=== PATIENT | female | born 1940 | race Two or more races ===

== ENCOUNTER 2019-03-25 20:14 | Inpatient (IN) | payer OTHER ==
[~2019-03-25] VITALS: Ht 121.9 cm; Wt 53.5 kg
--- NOTE | 2019-03-26 02:30 | NUR ---
CONFERENCE CENTER COORDINATORPONY RIDE ATTENDANT NOTES Received patient A/O x1-2 direct admit from [facility]. Admission routine done. Initial skin assessment done, no skin issues identified. With patent peripheral IV line LFA G#20, SL wrapped with kerlix. Diaper changed PRN, perineal care done. On tele monitor with NSR with inverted T wave noted. Kept on bed clean, dry and comfortable. On fall and aspiration precautions. Call light within easy reach. Will continue to monitor accordingly.
[2019-03-26] MEDS ORDERED: hydrALAZINE HCL IV 20 MG VIAL IV PRN (03:00)
[2019-03-26 03:30] VITALS: BP 160/95
[2019-03-26 04:10] LABS: BASOPHILS # (AUTO) 0.2 /CMM (0.0-0.2); BASOPHILS % (AUTO) 1.4 % (0.0-2.0); EOSINOPHILS % (AUTO) 12.5 % (0.0-6.0); HEMATOCRIT 50 % (33-45); HEMOGLOBIN 16.1 g/dL (11.5-14.8); LYMPHOCYTES # (AUTO) 3.7 /CMM (0.8-4.8); LYMPHOCYTES % (AUTO) 31.7 % (20.0-44.0); MEAN CORPUSCULAR HGB CONC 32 g/dl (31.0-36.0); MEAN CORPUSCULAR VOLUME 84 fL (82-100); MONOCYTES # (AUTO) 0.6 /CMM (0.1-1.30); MONOCYTES % (AUTO) 5.6 % (2.0-12.0); NEUTROPHILS # (AUTO) 5.6 /CMM (1.8-8.9); NEUTROPHILS % (AUTO) 48.8 % (43.0-81.0); PLATELET COUNT (AUTO) 216 /CMM (150-450); RED BLOOD CELL COUNT(AUTO) 5.91 MIL/uL (4.0-5.2); WHITE BLOOD COUNT (AUTO) 11.5 K/uL (4.3-11.0)
[2019-03-26 04:20] LABS: CALCIUM, SERUM 9.6 mg/dL (8.5-10.1); CREATININE 0.9 mg/dL (0.6-1.3); POTASSIUM 4.2 mmol/L (3.5-5.1)
--- NOTE | 2019-03-26 04:30 | NUR ---
BOOT TRIMMER NOTES Patient noted standing on bed, confused, agitated. Tried to calm patient down but started to hit staff. insurance analyst MD notified with order okay to apply wrists restrain PRN. Will continue to monitor accordingly.
[2019-03-26 04:32] LABS: ALBUMIN 3.8 g/dL (3.4-5.0); BILIRUBIN,TOTAL 0.8 mg/dL (0.2-1.0); TOTAL PROTEIN, SERUM 8.5 g/dL (6.4-8.2)
[2019-03-26] MEDS ORDERED: METO50TA16 PO (05:21)
[2019-03-26] MEDS ORDERED: CLON0.1T PO (05:21)
[2019-03-26] MEDS ORDERED: BENA40TA8 PO (05:21)
[2019-03-26] MEDS ORDERED: TRAM50TA2 PO (05:21)
[2019-03-26] MEDS ORDERED: AMLO5TAB9 PO (05:21)
[2019-03-26 05:24] LABS: THYROID STIMULATING HORMONE 1.974 uIU/mL (0.358-3.74)
[2019-03-26] MEDS ORDERED: BLOOD SUGAR DIAGNOSTIC 1 EACH STRIP IN SCH (06:00)
--- NOTE | 2019-03-26 06:30 | NUR ---
PIE CRIMPING MACHINE OPERATOR NOTES Patient on bed on semi-zapata's position. On RA, no respiratory distress or any discomfort noted. Patient wide awake, pulling off SCD on both legs. Still with bilateral soft wrist restraints, patient remained danger to own safety. All nursing needs attended. Kept on bed clean, dry and comfortable. On fall and aspiration precautions. On tele monitor with NSR with inverted T wave noted. Endorsed to the next shift.
[2019-03-26] MEDS: BLOOD SUGAR DIAGNOSTIC 1 EACH STRIP IN SCH ×4 (06:51→21:35)
--- NOTE | 2019-03-26 07:30 | NUR ---
TELE/RN OPENING NOTES RECEIVED PATIENT IN BED SLEEPING COMFORTABLY. EASILY AROUSABLE. NO PAIN OR ACUTE DISTRESS AT THIS TIME. RESPIRATION EVEN AND UNLABORED. SKIN IS DRY WARM TO TOUCH. PATIENT NOTED WITH LFA #20G INTACT AND PATENT. FLUSHING WELL. NO S/S OF INFECTION OR INFILTRATION. ALL NEEDS ANTICIPATED. CALL LIGHT WITHIN REACHED. SAFETY MAINTAINED. BED LOCKED AND IN LOWEST POSITION. WILL CONTINUE TO MONITOR CLOSELY.
[2019-03-26 08:47] VITALS: BP 127/87
[2019-03-26] MEDS ORDERED: ENOXAPARIN SODIUM 40 MG/0.4 ML DISP.SYRIN SQ SCH (09:30)
[2019-03-26] MEDS: ASPIRIN EC 325 MG TABLET.DR PO SCH (09:41)
[2019-03-26] MEDS: ENOXAPARIN SODIUM 30 MG/0.3 ML DISP.SYRIN SQ SCH (09:41)
--- NOTE | 2019-03-26 14:00 | NUR ---
MS/RN NOTES PATIENT WAS SEEN AND EVALUATED BY FACILITY WORKER. FACILITY WORKER DID A POST STROKE DEPRESSION ASSESSMENT AND PER SW PATIENT WOULD BE NEEDING A PSYCH CONSULT WITH DR. CLARKE. ALL ORDERS NOTED AND CARRIED OUT. PATIENT CONTINUES TO REMAIN IN STABLE CONDITION. FAMILY MEMBERS AT BEDSIDE. WILL CONTINUE TO MONITOR CLOSELY.
--- NOTE | 2019-03-26 14:50 | NUR ---
Social service consult requested by Dr. Sultana for Stroke protocol. Per MD notes, pt is a 78 year old female with past medical hx of CAD s/p CABG, DM, HTN, CVA who was seen at [facility] for chest pain and vision changes and right eye pain and changes in ability to speak. She reported to having a stroke in January with some residual right weakness. Pt was found to hve elevated BNP at 718, negative troponin, CTA showed no acute aortic syndrome, atherosclerosis, right renal hilar 1.7cm aneurysm and s/p CABG changes, no pulmonary consolidation, CT head showed no acute intracranial disease. CXR showed mod-severe cardiomegaly and patchy consolidation suspicious for pneumonia/edema. She was found to have IOP of 14 in both eyes. TTE showed severely dilated LV with EF 60-65% Patient treated with ASA and transferred here for insurance reasons. ANIMAL CARE SPECIALIST met with the pt and her family bedside. Pt's daughter Melinda was present. Pt and family are Persian speaking. MARY Echeverria assisted in translating. Pt. resides with her family at [address] [place] [address], [address] in [place]. Pt's emergency contact is her daughter Melinda . ANIMAL CARE SPECIALIST conducted Depression screening with pt. and family members. . Pt. is alert and oriented x 3. Pt appears to be moderately depressed. Pt. states, she is feeling more sad due to being on two point restraints for safety concerns. Pt. kept wandering out of bed when she had no restraints. Pt. has a sad affect. Pt's right eye is slightly drooping. Prior to hospitalization, pt's daughter stated the pt was independent with her ADLs/IADLs. Pt. stated, she wants to go back to being able to do things her daughter is able to do now. Pt's family is very supportive. Pt.denies suicidal ideations but is moderately depressed. DINA Bowers notified regarding pt. needing a psych consult and C-SSRS screening due to pt scoring a 13 on the Post Stroke Depression scale (PHQ-9).
[2019-03-26 16:36] VITALS: BP 149/92
--- NOTE | 2019-03-26 18:33 | NUR ---
TELE/RN CLOSING NOTES PATIENT CONTINUES TO REMAIN IN STABLE CONDITION THROUGHOUT THE SHIFT. PROVIDED COMFORT AND SAFETY. PATIENT NOTED WITH LFA #20G INTACT AND PATENT. FLUSHING WELL. NO S/S OF INFECTION OR INFILTRATION. ALL NEEDS ANTICIPATED. CALL LIGHT WITHIN REACHED. SAFETY MAINTAINED. BED LOCKED AND IN LOWEST POSITION. WILL CONTINUE TO MONITOR CLOSELY. ENDORSED TO PM NURSE FOR DONN.
--- NOTE | 2019-03-26 19:00 | NUR ---
MS RN OPENING NOTES Received patient awake on bed. On bilateral soft wrist restrain. Patient noted confused. No s/sx of discomfort noted at this time. Kept on bed clean, dry and comfortable. Call light within easy reach. On fall and aspiration precautions. Will continue to monitor accordingly.
[2019-03-26 21:20] VITALS: BP 135/86
[2019-03-26] MEDS ORDERED: SIMVASTATIN 20 MG TABLET PO SCH (22:00)
[2019-03-26] MEDS ORDERED: SIMVASTATIN 40 MG TABLET PO SCH (22:00)
[2019-03-26] MEDS: VALACYCLOVIR HCL 500 MG TABLET PO SCH (22:49)
[2019-03-27] MEDS: BLOOD SUGAR DIAGNOSTIC 1 EACH STRIP IN SCH ×2 (06:31→12:30)
--- NOTE | 2019-03-27 06:36 | NUR ---
MS RN CLOSING NOTES Patient asleep on bed, easily awaken. On RA, no SOB/respiratory distress noted at this time. Patient denies any discomfort at this time. With bilateral soft wrist restraints. Patient remained confused, and combative. Reinserted IV line, good blood return noted after first attempt. RAC G#22 SL. Kept on bed clean, dry and comfortable. On fall and aspiration precautions. Call light within easy reach. Endorsed to the next shift.
--- NOTE | 2019-03-27 07:10 | NUR ---
MS RN OPENING NOTES RECEIVED PATIENT IN BED, ALERT AND CONFUSED WITH BILATERAL WRIST RESTRAINTS IN PLACE. PATIENT TRYING TO GET OOB. REORIENTED PATIENT ALONG WITH DISTRACTIONS PROVIDED. BED IN LOWEST POSITION, LOCKED. NO SOB. NO EVIDENCE OF PAIN NOR DISCOMFORT. BED SIDERAILS UP X2. BED ALARM ON. FREQUENT VISUAL CHECK DONE.
[2019-03-27 07:57] LABS: BASOPHILS # (AUTO) 0.1 /CMM (0.0-0.2); BASOPHILS % (AUTO) 0.5 % (0.0-2.0); HEMATOCRIT 50 % (33-45); HEMOGLOBIN 16.5 g/dL (11.5-14.8); LYMPHOCYTES # (AUTO) 2.1 /CMM (0.8-4.8); MEAN CORPUSCULAR HGB CONC 33 g/dl (31.0-36.0); MEAN CORPUSCULAR VOLUME 83 fL (82-100); MONOCYTES # (AUTO) 0.7 /CMM (0.1-1.30); MONOCYTES % (AUTO) 6.7 % (2.0-12.0); NEUTROPHILS # (AUTO) 7.6 /CMM (1.8-8.9); NEUTROPHILS % (AUTO) 70.8 % (43.0-81.0); PLATELET COUNT (AUTO) 209 /CMM (150-450); WHITE BLOOD COUNT (AUTO) 10.8 K/uL (4.3-11.0)
[2019-03-27 08:00] VITALS: BP 122/78
[2019-03-27 08:14] LABS: CALCIUM, SERUM 9.7 mg/dL (8.5-10.1); CREATININE 0.9 mg/dL (0.6-1.3); POTASSIUM 3.7 mmol/L (3.5-5.1)
[2019-03-27] MEDS: PANTOPRAZOLE 40 MG TABLET.DR PO SCH (08:53)
[2019-03-27] MEDS ORDERED: predniSONE 10 MG TABLET PO SCH (09:00)
[2019-03-27] MEDS: VALACYCLOVIR HCL 500 MG TABLET PO SCH (09:08)
[2019-03-27] MEDS: ASPIRIN EC 325 MG TABLET.DR PO SCH (09:08)
[2019-03-27] MEDS: ENOXAPARIN SODIUM 30 MG/0.3 ML DISP.SYRIN SQ SCH (09:11)
[2019-03-27] MEDS ORDERED: DEXTROSE 50%-WATER 50 ML DISP.SYRIN IV PRN (15:00)
--- NOTE | 2019-03-27 16:10 | NUR ---
MS RN NOTES PATIENT OFF UNIT FOR CT
--- NOTE | 2019-03-27 16:24 | NUR ---
MS RN NOTES PATIENT RETURNED TO UNIT FROM CT SCAN.
[2019-03-27] MEDS: CLOPIDOGREL BISULFATE 75 MG TABLET PO SCH (17:08)
[2019-03-27] MEDS: BLOOD SUGAR DIAGNOSTIC 1 EACH STRIP VI SCH ×2 (17:08→22:15)
[2019-03-27] MEDS: OLANZAPINE 5 MG/TAB.RAPDIS PO SCH ×2 (17:11→23:20)
[2019-03-27] MEDS: INSULIN REGULAR, HUMAN 100 UNIT/ML 3 ML VIAL SQ PRN (17:13)
--- NOTE | 2019-03-27 19:25 | NUR ---
MS RN CLOSING NOTES PATIENT RESTING COMFORTABLY IN BED. DAUGHTER AT BEDSIDE. ALERT AND CONFUSED. SITTER AT BEDSIDE. NO SOB. ABLE TO MOVE ALL EXTREMITIES WITHOUT DIFFICULTY. DENIES ANY C/O PAIN NOR DISCOMFORT. NO EVIDENCE OF SWALLOWING DIFFICULTY OBSERVED DURING THE SHIFT. BEE PUREED WITH HTL WELL DURING MEAL INTAKE. BEE CRUSHED MEDICATIONS WELL DURING THE SHIFT. BED IN LOWEST POSITION, LOCKED. NO SOB. NO EVIDENCE OF PAIN NOR DISCOMFORT. BED SIDERAILS UP X2. BED ALARM ON. FREQUENT VISUAL CHECK DONE. IN NO APPARENT DISTRESS.
[2019-03-27 20:00] VITALS: BP 132/81
--- NOTE | 2019-03-27 20:26 | NUR ---
MS RN OPENING NOTES Patient received resting in bed, A/O x1 mostly Lao speaking and confused. Sitter is at bedside. Patient is on RA breathing even and unlabored, no SOB noted. No complaints of pain or discomfort, no facial grimacing noted. No signs of acute distress. IV located on R AC #22 SL. Safety precautions in place with bed in lowest position, breaks on, side rails ups x 2, and call light within reach. Will continue to monitor.
[2019-03-27] MEDS: SIMVASTATIN 20 MG TABLET PO SCH (22:08)
[2019-03-27] MEDS: *INSULIN REGULAR(HUMULIN R)HUM 100 UNIT/ML VIAL SQ PRN (22:17)
[2019-03-28 06:24] LABS: BASOPHILS # (AUTO) 0.1 /CMM (0.0-0.2); BASOPHILS % (AUTO) 0.5 % (0.0-2.0); EOSINOPHILS % (AUTO) 3.7 % (0.0-6.0); HEMATOCRIT 49 % (33-45); LYMPHOCYTES # (AUTO) 2.4 /CMM (0.8-4.8); LYMPHOCYTES % (AUTO) 17.9 % (20.0-44.0); MEAN CORPUSCULAR HGB CONC 33 g/dl (31.0-36.0); MEAN CORPUSCULAR VOLUME 83 fL (82-100); MONOCYTES # (AUTO) 0.8 /CMM (0.1-1.30); MONOCYTES % (AUTO) 5.9 % (2.0-12.0); NEUTROPHILS # (AUTO) 9.5 /CMM (1.8-8.9); PLATELET COUNT (AUTO) 201 /CMM (150-450); RED BLOOD CELL COUNT(AUTO) 5.83 MIL/uL (4.0-5.2); WHITE BLOOD COUNT (AUTO) 13.2 K/uL (4.3-11.0)
[2019-03-28] MEDS: OLANZAPINE 5 MG/TAB.RAPDIS PO SCH ×2 (06:24→12:00)
[2019-03-28] MEDS: BLOOD SUGAR DIAGNOSTIC 1 EACH STRIP VI SCH ×4 (06:34→22:46)
--- NOTE | 2019-03-28 06:37 | NUR ---
MS RN CLOSING NOTES PATIENT CURRENTLY RESTING IN BED A/O X1 CONFUSED, SITTER IS AT BEDSIDE. PATIENT IS ON 2L OF O2 VIA NC BREATHING EVEN AND UNLABORED, NO SOB NOTED. NO SIGNS OF ACUTE DISTRESS, NO FACIAL GRIMACING, NO PAIN OR DISCOMFORT NOTED. IV LOCATED ON R AC #20 SL. ALL NEEDS WERE ATTENDED TO AND PATIENT WAS KEPT CLEAN AND DRY. SAFETY PRECAUTIONS IN PLACE WITH BED IN LOWEST POSITION, CALL LIGHT WITHIN REACH, BREAKS ON, AND SIDE RAILS UP X2. WILL ENDORSE TO ONCOMING SHIFT ABOUT DONN.
[2019-03-28 07:00] LABS: CALCIUM, SERUM 10.1 mg/dL (8.5-10.1); CREATININE 0.7 mg/dL (0.6-1.3); MAGNESIUM 2.2 mg/dL (1.8-2.4); PHOSPHORUS 3.3 mg/dL (2.5-4.9); POTASSIUM 3.9 mmol/L (3.5-5.1)
--- NOTE | 2019-03-28 07:00 | NUR ---
MS/RN Received patient AOx1, confused, sitter at bed side. No appears pain or any discomfort. Skin is warm to touch kept clean/dry, intact IV site, respiratory even and unlabored. Lower bed position with elevated HOB for safety precaution. Call light within reach, will continue to monitor.
[2019-03-28] MEDS: PANTOPRAZOLE 40 MG TABLET.DR PO SCH (07:51)
[2019-03-28 08:00] VITALS: BP 116/69
[2019-03-28] MEDS ORDERED: ASPIRIN EC 325 MG TABLET.DR PO SCH (09:00)
[2019-03-28] MEDS: CLOPIDOGREL BISULFATE 75 MG TABLET PO SCH (09:07)
[2019-03-28] MEDS: ENOXAPARIN SODIUM 30 MG/0.3 ML DISP.SYRIN SQ SCH (09:08)
[2019-03-28] MEDS: ASPIRIN EC 81 MG TABLET.DR PO SCH (09:20)
[2019-03-28] MEDS: *INSULIN REGULAR(HUMULIN R)HUM 100 UNIT/ML VIAL SQ PRN (11:42)
[2019-03-28] MEDS ORDERED: Z GUARD REMEDY 2 OZ OINT TP PRN (12:30)
[2019-03-28] MEDS ORDERED: BARIUM SULFATE 240 ML ORAL.SUSP PO ONE (15:12)
[2019-03-28] MEDS ORDERED: BARIUM SULFATE 148 GM SUSP.RECON PO ONE (15:12)
[2019-03-28 16:00] VITALS: BP 103/57
--- NOTE | 2019-03-28 18:00 | NUR ---
MS/RN Closing note Pt is in bed comfortably, family member at bed side and feeding pt. No appears pain or discomfort, skin is warm to touch, clean/dry. Kept lower bed positioned with elevated HOB. Respiratory even and unlabored. Call light within reach, will continue to monitor.
[2019-03-28] MEDS: INSULIN REGULAR, HUMAN 100 UNIT/ML 3 ML VIAL SQ PRN (18:21)
--- NOTE | 2019-03-28 19:45 | NUR ---
RN OPENING NOTES RECEIVED REPORT FROM [facility] RN MJ & GOYO. FOUND Pt ASLEEP IN BED, SITTER AT BEDSIDE. NO S/S OF ACUTE DISTRESS OR SOB NOTED. RESPIRATIONS EVEN AND UNLABORED WITH EQUAL CHEST RISE AND FALL. Pt IS A/OX1, CONFUSED, & AUSTRALIAN SPEAKING ONLY. IV ACCESS ON RAC #22G, SL. SAFETY MEASURES IN PLACE. BED LOW, LOCKED, HOB ELEVATED, SIDE RAILS UP, SITTER AT BEDSIDE. BED ALARM ON. WILL CONTINUE TO MONITOR Pt's CONDITION AND SAFETY THROUGHOUT THE NIGHT. Addendum: 03/28/19 at 2052 by RUBY HIGH RN RESTRAINTS ARE CURRENTLY OFF OF Pt. Pt IS CALM AND ASLEEP.
[2019-03-28 20:30] VITALS: BP 121/90
--- NOTE | 2019-03-28 22:51 | NUR ---
RN NOTES BG 83. NO INSULIN COVERAGE NEEDED AT THIS TIME.
[2019-03-28] MEDS: SIMVASTATIN 20 MG TABLET PO SCH (22:54)
[2019-03-29 06:22] LABS: CALCIUM, SERUM 9.1 mg/dL (8.5-10.1); CREATININE 0.9 mg/dL (0.6-1.3); PHOSPHORUS 4.1 mg/dL (2.5-4.9); POTASSIUM 3.7 mmol/L (3.5-5.1)
[2019-03-29 06:25] LABS: BASOPHILS # (AUTO) 0.1 /CMM (0.0-0.2); HEMATOCRIT 47 % (33-45); HEMOGLOBIN 15.5 g/dL (11.5-14.8); LYMPHOCYTES % (AUTO) 21.2 % (20.0-44.0); MEAN CORPUSCULAR HGB CONC 33 g/dl (31.0-36.0); MEAN CORPUSCULAR VOLUME 82 fL (82-100); MONOCYTES # (AUTO) 0.5 /CMM (0.1-1.30); NEUTROPHILS # (AUTO) 5.2 /CMM (1.8-8.9); NEUTROPHILS % (AUTO) 54.8 % (43.0-81.0); PLATELET COUNT (AUTO) 213 /CMM (150-450); RED BLOOD CELL COUNT(AUTO) 5.67 MIL/uL (4.0-5.2); WHITE BLOOD COUNT (AUTO) 9.6 K/uL (4.3-11.0)
--- NOTE | 2019-03-29 06:35 | NUR ---
RN NOTES AC ACCUCHECK BG 107. NO INSULIN COVERAGE NEEDED AT THIS TIME.
--- NOTE | 2019-03-29 07:00 | NUR ---
MS/RN Opening Note Patient received in bed AO x 1, able to responds all stimuli. Pt does no appears pain or any discomfort, respiratory even and unlabored, skin is warm to touch, clean/dry. Call light within reach, will continue to monitor.
--- NOTE | 2019-03-29 07:05 | NUR ---
RN CLOSING NOTES NO SIGNIFICANT CHANGES IN Pt's CONDITION. Pt REMAINED STABLE DURING THE NIGHT. NO S/S OF ACUTE DISTRESS OR SOB NOTED. ALL NEEDS MET AND ATTENDED. SAFETY MEASURES IN PLACE. BED ALARM ON. SITTER AT BEDSIDE. Pt IS RESTING COMFORTABLY IN BED WITH UNLABORED RESPIRATIONS AND EQUAL CHEST RISE AND FALL. WILL ENDORSE TO DAYSHIFT RN FOR Pt's DONN.
[2019-03-29] MEDS: BLOOD SUGAR DIAGNOSTIC 1 EACH STRIP VI SCH ×3 (07:42→18:40)
[2019-03-29] MEDS: PANTOPRAZOLE 40 MG TABLET.DR PO SCH (07:51)
[2019-03-29 08:00] VITALS: BP 118/69
[2019-03-29] MEDS: ENOXAPARIN SODIUM 30 MG/0.3 ML DISP.SYRIN SQ SCH (09:16)
[2019-03-29] MEDS: CLOPIDOGREL BISULFATE 75 MG TABLET PO SCH (09:16)
[2019-03-29] MEDS: ASPIRIN EC 81 MG TABLET.DR PO SCH (09:16)
[2019-03-29] MEDS ORDERED: ENOX30DI SQ (12:33)
[2019-03-29] MEDS ORDERED: CLOP75TA15 PO (12:33)
[2019-03-29] MEDS ORDERED: PANT40TA2 PO (12:33)
[2019-03-29] MEDS ORDERED: ASPI-1152 PO (12:33)
[2019-03-29] MEDS ORDERED: SIMV-46 PO (12:33)
[2019-03-29 16:00] VITALS: BP 123/70
--- NOTE | 2019-03-29 18:00 | NUR ---
MS/RN Closing note Pt in bed, calm and comfortably, no c/o pain or facial grimace observed. Respiratory even and unlabored, skin is warm to touch, clean/dry, given bed bath by TURN DOWN WORKER. Kept lower position bed with elevated HOB, day care assistant at bed side. Pt and daughter waiting ambulance for transfer to SNF. Call light within reach, will endorse to rn shift mgr.
--- NOTE | 2019-03-29 18:30 | NUR ---
Given report Maykel Barillas/Rebecca GUILLEN.
[2019-03-29 19:32] VITALS: BP 142/86
--- NOTE | 2019-03-29 19:54 | NUR ---
MS RN NOTE: PATIENT RESTING IN BED, EMT ARRIVED TO CHEMIST PHARMACEUTICAL PATIENT TO [facility]. REPORT GIVEN TO EMT. IV TO RAC REMOVED, COVERED WITH GAUZE, PRESSURE APPLIED, AND SECURED WITH TAPE. PATIENT BELONGINGS OF DENTURES WITH PATIENT. DISCHARGE PAPERWORK SIGNED AND GIVEN TO EMT. PATIENT OFF FLOOR IN STABLE CONDITION.
[2019-04-07] MEDS ORDERED: LEVO500T75 PO (10:44)
== END 2019-03-29 19:50 | DRG 74 ==
LOC: TELE 03-26 02:25 → MED 03-26 09:17
PROVIDERS: ADMIT Student in an Organized Health Care Education/Training Program; ATTEND Student in an Organized Health Care Education/Training Program
DX: G51.0 Bell's palsy (principal); G81.94 Hemiplegia, unspecified affecting left nondominant side; E11.9 Type 2 diabetes mellitus without complications; I25.10 Atherosclerotic heart disease of native coronary artery without angina pectoris; I10 Essential (primary) hypertension; D72.829 Elevated white blood cell count, unspecified; Z86.73 Personal history of transient ischemic attack (TIA), and cerebral infarction without residual deficits; Z95.1 Presence of aortocoronary bypass graft; H02.401 Unspecified ptosis of right eyelid; D47.3 Essential (hemorrhagic) thrombocythemia; Z78.1 Physical restraint status
CPT/HCPCS: 36415; 70450-TC; 71045-TC; 74230-TC; 80048-TC; 80053-TC; 80061-TC; 82962-TC; 83735-TC; 83880; 84100-TC; 84443-TC; 84484-TC; 85025-TC; 85652-TC; 85730-TC; 87081-TC; 92521; 92526; 92611-TC; 93307-TC; 93880-TC; 97116-TC; 97530-TC; G0378; J1650; J1815

== ENCOUNTER 2019-04-05 18:51 | Inpatient (IN) | payer OTHER ==
[~2019-04-05] VITALS: Ht 157.5 cm; Wt 48.3 kg
[~2019-04-05 18:51] MED LIST: AMLO5TAB9 PO; ASPI-1152 PO; BENA40TA8 PO; CLON0.1T PO; CLOP75TA15 PO; ENOX30DI SQ; METO50TA16 PO; PANT40TA2 PO; SIMV-46 PO; TRAM50TA2 PO
--- NOTE | 2019-04-05 19:06 | NUR ---
PT [facility] from [facility] "Altered since this am. Was sent here for GT replacement." BS-105. PT NONVERBAL. PT RESPONDS TO PAINFUL STIMULI. PT ON MONIOOR IN BED 1. WILL CONTINUE TO MONITOR.
--- NOTE | 2019-04-05 19:22 | NUR ---
TECH AT BEDSIDE FOR EKG
[2019-04-05 19:29] LABS: BASOPHILS # (AUTO) 0.1 /CMM (0.0-0.2); BASOPHILS % (AUTO) 1.2 % (0.0-2.0); EOSINOPHILS % (AUTO) 2.1 % (0.0-6.0); HEMATOCRIT 49 % (33-45); LYMPHOCYTES % (AUTO) 11.6 % (20.0-44.0); MEAN CORPUSCULAR HGB CONC 33 g/dl (31.0-36.0); MEAN CORPUSCULAR VOLUME 84 fL (82-100); MONOCYTES # (AUTO) 0.2 /CMM (0.1-1.30); MONOCYTES % (AUTO) 2.7 % (2.0-12.0); NEUTROPHILS # (AUTO) 7.2 /CMM (1.8-8.9); NEUTROPHILS % (AUTO) 82.4 % (43.0-81.0); PLATELET COUNT (AUTO) 206 /CMM (150-450); WHITE BLOOD COUNT (AUTO) 8.8 K/uL (4.3-11.0)
[2019-04-05 19:36] LABS: CALCIUM, SERUM 9.4 mg/dL (8.5-10.1); CREATININE 0.8 mg/dL (0.6-1.3); POTASSIUM 4.1 mmol/L (3.5-5.1)
[2019-04-05 19:46] LABS: SERUM AMMONIA 0 umol/L (11-32)
[2019-04-05 19:48] LABS: ALANINE AMINOTRANSFERASE 17 U/L (12-78); ALBUMIN 3.6 g/dL (3.4-5.0); ALCOHOL, BLOOD < 3 mg/dL (0-0); ALKALINE PHOSPHATASE 121 U/L (46-116); ASPARTATE AMINOTRANSFERASE 23 U/L (15-37); BILIRUBIN,DIRECT 0.3 mg/dL (0.0-0.2); BILIRUBIN,TOTAL 0.9 mg/dL (0.2-1.0); TOTAL PROTEIN, SERUM 8.2 g/dL (6.4-8.2)
--- NOTE | 2019-04-05 19:56 | NUR ---
ENVIRONMENTAL EMERGENCIES PLANNER CALLED BACK. TOLD WILL CALL BACK LATER WITH MORE INFORMATION.
[2019-04-05 19:57] LABS: THYROID STIMULATING HORMONE 0.469 uIU/mL (0.358-3.74)
--- NOTE | 2019-04-05 20:02 | NUR ---
PT TAKEN TO RADIOLOGY VIA [facility]
--- NOTE | 2019-04-05 20:15 | NUR ---
PT RETURNED FROM RADIOLOGY VIA [facility]
[2019-04-05] MEDS ORDERED: IV NS 0.9% 500 ML BAG IV ONE (21:00)
[2019-04-05 21:45] LABS: APPEARANCE,URINE Slightly Cloudy (CLEAR); BILIRUBIN,URINE SMALL (NEGATIVE); BLOOD, URINE Negative Ery/uL (NEGATIVE); COLOR,URINE Dark (YELLOW); KETONES,URINE >=160 (NEGATIVE); LEUKOCYTE ESTERASE ,URINE Negative (NEGATIVE); NITRITE, URINE Positive (NEGATIVE); PROTEIN,URINE Negative (NEGATIVE); UGLUCOSE Negative (NEGATIVE)
[2019-04-05 21:58] LABS: BACTERIA,URINE Many /HPF (None Seen); RBC,URINE 0-2 /HPF (0-2); SQUAMOUS EPITHELIAL CELL,UR Few /HPF (None Seen)
[2019-04-05] MEDS ORDERED: TRAMADOL HCL 50 MG TABLET PO PRN (22:00)
[2019-04-05] MEDS: SIMVASTATIN 20 MG TABLET PO SCH (22:00)
[2019-04-05] MEDS ORDERED: ACETAMINOPHEN 325 MG TABLET PO PRN (22:00)
[2019-04-05] MEDS ORDERED: MAGNESIUM HYDROXIDE 30 ML UDC PO PRN (22:00)
[2019-04-05] MEDS ORDERED: ONDANSETRON HCL/PF 4 MG/2 ML VIAL IVP PRN (22:00)
[2019-04-05] MEDS ORDERED: HYDROCODONE/APAP 5/325MG 1 EACH TABLET PO PRN (22:00)
[2019-04-05] MEDS ORDERED: MAG HYDROX/AL HYDROX/SIMETH 30 ML UDC PO PRN (22:00)
[2019-04-05] MEDS ORDERED: Z GUARD REMEDY 2 OZ OINT TP PRN (22:00)
[2019-04-05] MEDS ORDERED: DEXTROSE 50%-WATER 50 ML DISP.SYRIN IV PRN (22:30)
[2019-04-05] MEDS ORDERED: INSULIN REGULAR, HUMAN 100 UNIT/ML 3 ML VIAL SQ PRN (22:30)
--- NOTE | 2019-04-05 22:30 | NUR ---
REPORT GIVEN TO MINDY BHATIA FOR DONN
[2019-04-05 22:44] VITALS: BP 155/78
--- NOTE | 2019-04-05 22:44 | NUR ---
MS SUPERVISOR SOUND TECHNICIAN NOTES Received patient A/O, responsive to deep pain, via gurney from ER. Admitted to MS 312-1 due to AMS under the service of RYLAN De La Rosa. Assisted to bed comfortably. Admission routine done. Patient's belongings inventory completed by the assigned SENIOR FIELD ENGINEER. Initial skin assessment done, photo taken and documented. Admission orders noted and carried out. Kept on bed clean, dry and comfortable. Call light within easy reach. Will continue to monitor accordingly.
[2019-04-05] MEDS ORDERED: ENOXAPARIN SODIUM 30 MG/0.3 ML DISP.SYRIN SQ SCH (23:00)
[2019-04-05] MEDS: IV NS 0.9% 1,000 ML IV PRN (23:14)
[2019-04-05] MEDS ORDERED: CEFTRIAXONE 1 G VIAL ONE (23:23)
[2019-04-05 23:29] LABS: ABG BASE EXCESS -5.5 mmol/L; ABG OXYGEN SATURATION 95.5 % (92.0-98.5); ABG PCO2 34.3 mmHg (35.0-45.0); ABG PO2 81.7 mmHg (75.0-100.0); COHb 0.4 % (0.5-1.5); MetHb 0.3 % (0.0-1.5); O2Hb 94.8 % (94.0-97.0); SITE, ABG Right Radial; VENT MODE, BG Room Air
[2019-04-05] MEDS: CEFTRIAXONE 1 G in IV D5W 50 ML IV SCH (23:31)
--- NOTE | 2019-04-06 06:47 | NUR ---
RN CLOSING NOTES Spoke to daughter for telephone consent for PEG placement, anesthesia and BT in case of emergency. Witnessed by MINDY Vaughn, translated by unit sirena Zeng. Patient asleep, responsive to pain. On RA, no SOB/respiratory distress noted. Due meds given as ordered. All nursing needs attended. On NPO since admission. Kept on bed clean, dry and comfortable. Call light within easy reach. On fall and aspiration precautions. Endorsed.
--- NOTE | 2019-04-06 07:20 | NUR ---
RN OPENING NOTES RECEIVED PATIENT IN BED RESTING. NON VERBAL. RESPONSIVE TO TOUCH AND PAIN. NOT IN ANY FORM OF DISTRESS. NO SOB. NO S/S OF PAIN OR DISCOMFORT AT THIS TIME. IV ACCESS INTACT AND PATENT. KEPT PATIENT SAFE AND COMFORTABLE. BED IN LOW/LOCKED POSITION SIDERAILS UPX2, CALL LIGHT IN REACH. WILL CONT TO MONITOR ACCORDINGLY.
[2019-04-06] MEDS: PANTOPRAZOLE 40 MG TABLET.DR PO SCH (07:30)
[2019-04-06] MEDS: BLOOD SUGAR DIAGNOSTIC 1 EACH STRIP IN SCH ×4 (07:30→22:43)
[2019-04-06 07:51] LABS: BASOPHILS # (AUTO) 0.1 /CMM (0.0-0.2); BASOPHILS % (AUTO) 0.9 % (0.0-2.0); EOSINOPHILS % (AUTO) 6.5 % (0.0-6.0); HEMATOCRIT 44 % (33-45); HEMOGLOBIN 14.6 g/dL (11.5-14.8); LYMPHOCYTES # (AUTO) 1.6 /CMM (0.8-4.8); LYMPHOCYTES % (AUTO) 18.7 % (20.0-44.0); MEAN CORPUSCULAR HGB CONC 33 g/dl (31.0-36.0); MEAN CORPUSCULAR VOLUME 83 fL (82-100); MONOCYTES # (AUTO) 0.5 /CMM (0.1-1.30); MONOCYTES % (AUTO) 6.2 % (2.0-12.0); NEUTROPHILS # (AUTO) 5.9 /CMM (1.8-8.9); NEUTROPHILS % (AUTO) 67.7 % (43.0-81.0); PLATELET COUNT (AUTO) 192 /CMM (150-450); WHITE BLOOD COUNT (AUTO) 8.7 K/uL (4.3-11.0)
[2019-04-06 08:00] VITALS: BP 128/70
[2019-04-06 08:57] LABS: THYROID STIMULATING HORMONE 0.339 uIU/mL (0.358-3.74)
[2019-04-06] MEDS: CLONIDINE HCL 0.1 MG TABLET PO SCH ×2 (09:00→18:24)
[2019-04-06 09:04] LABS: CALCIUM, SERUM 8.8 mg/dL (8.5-10.1); CREATININE 0.7 mg/dL (0.6-1.3); MAGNESIUM 1.9 mg/dL (1.8-2.4); PHOSPHORUS 3.7 mg/dL (2.5-4.9); POTASSIUM 3.8 mmol/L (3.5-5.1)
--- NOTE | 2019-04-06 11:25 | NUR ---
RN NOTES PATIENT RETURNED FROM SURGERY S/P PEG PLACEMENT. PATIENT IN STABLE CONDITION. VSS. WILL MNONIOTR ACCORIDNGLY.
[2019-04-06] MEDS: CLOPIDOGREL BISULFATE 75 MG TABLET PO SCH (11:29)
[2019-04-06 11:30] VITALS: BP 154/72
[2019-04-06] MEDS: AMLODIPINE BESYLATE 5 MG TABLET PO SCH (11:32)
[2019-04-06] MEDS: ASPIRIN EC 81 MG TABLET.DR PO SCH (11:33)
[2019-04-06] MEDS: BENAZEPRIL HCL 20 MG TABLET PO SCH (11:33)
[2019-04-06 11:45] VITALS: BP 150/73
[2019-04-06 12:00] VITALS: BP 151/76
[2019-04-06 16:00] VITALS: BP 128/69
[2019-04-06] MEDS ORDERED: HALOPERIDOL LACTATE INJ 5 MG/ML VIAL IM ONE (16:30)
[2019-04-06] MEDS: IV NS 0.9% 1,000 ML IV PRN (18:47)
--- NOTE | 2019-04-06 19:45 | NUR ---
RN CLOSING NOTES PATIENT IN STABLE CONDITION. ALL NEEDS ATTENDED AND PROVIDED. ASSISTED WITH ADLS. ALL DUE MEDICATIONS GIVEN ORDERED. TURNED AND REPOSITIONED PATIENT EVERY 2 HRS NEEDED. KEPT PATIENT SAFE AND COMFORTABLE. BED IN LOW/LOCKED POSITION. SIDERAILS UP. CALL LIGHT IN REACH. ENDORSED TO NIGHT RN FOR DONN.
[2019-04-06 20:00] VITALS: BP 134/66
--- NOTE | 2019-04-06 20:00 | NUR ---
MS/RN CLOSING NOTES RECEIVED PATIENT IN BED, WITH NASAL CANULA AT 3L, RESPIRATIONS EVEN AND UNLABORED, COOPERATIVE TO CARE. BED LOCKED, CALL LIGHTS WITHIN REACH, IV SITE PATENT ON RFA. RECEIVED ENDORSEMENT FROM AM RN FOR DONN.
[2019-04-06] MEDS: CEFTRIAXONE 1 G in IV D5W 50 ML IV SCH (22:43)
[2019-04-06] MEDS: SIMVASTATIN 20 MG TABLET PO SCH (22:43)
[2019-04-06] MEDS: ENOXAPARIN SODIUM 40 MG/0.4 ML DISP.SYRIN SQ SCH (22:46)
--- NOTE | 2019-04-07 06:54 | NUR ---
312-1MS/RN CLOSING NOTES RECEIVED PATIENT IN BED, ASSISTED WITH ALL NEEDS, BED LOCKED,CALL LIGHTS WITHIN REACH. WILL ENDORSE TO AM RN FOR DONN
[2019-04-07] MEDS: BLOOD SUGAR DIAGNOSTIC 1 EACH STRIP IN SCH ×4 (06:59→22:02)
--- NOTE | 2019-04-07 07:00 | NUR ---
MS/RN Opening Note Received pt in bed comfortably, pt awake and able to responds all stimuli. Skin is warm ot touch, clean/dry, intact IV site. Respiratory even and unlabored, kept lower position of bed with elevated HOB. Call light with in reach, will continue to monitor.
[2019-04-07] MEDS: PANTOPRAZOLE 40 MG TABLET.DR PO SCH (07:30)
[2019-04-07 08:00] VITALS: BP 133/59
[2019-04-07] MEDS: AMLODIPINE BESYLATE 5 MG TABLET PO SCH (09:00)
[2019-04-07] MEDS: CLOPIDOGREL BISULFATE 75 MG TABLET PO SCH (09:00)
[2019-04-07] MEDS: ASPIRIN EC 81 MG TABLET.DR PO SCH (09:00)
[2019-04-07] MEDS: CLONIDINE HCL 0.1 MG TABLET PO SCH ×2 (09:00→17:00)
[2019-04-07] MEDS: BENAZEPRIL HCL 20 MG TABLET PO SCH (09:00)
--- NOTE | 2019-04-07 09:30 | NUR ---
Pt post status g tube placement yesterdey and has not started g tube feeding yet, informed Dr. vazquez and received order disposal man consult. Will carry out.
[2019-04-07] MEDS ORDERED: LEVO500T75 PO (10:44)
[2019-04-07 16:00] VITALS: BP 118/59
[2019-04-07] MEDS: IV NS 0.9% 1,000 ML IV PRN (17:41)
--- NOTE | 2019-04-07 18:30 | NUR ---
MS/RN Closing note Pt in bed comfortably, no appears pain or discomfort. Skin is warm to touch, clean/dry and intact mid line dressing. Respiratory even and un labored. Call lgiht within reach will endorse breaker boss.
[2019-04-07 20:00] VITALS: BP 144/75
[2019-04-07] MEDS ORDERED: GLUCERNA 1.2 1,000 ML BOTTLE NG PRN ×2 (20:30)
[2019-04-07] MEDS: SIMVASTATIN 20 MG TABLET PO SCH (22:02)
[2019-04-07] MEDS: ENOXAPARIN SODIUM 40 MG/0.4 ML DISP.SYRIN SQ SCH (22:02)
[2019-04-07] MEDS: CEFTRIAXONE 1 G in IV D5W 50 ML IV SCH (22:03)
--- NOTE | 2019-04-08 05:39 | NUR ---
MS RN NOTES PT NOTED TO HAVE BLEEDING AT GT SITE. NOTIFIED NIKOLAI HAAS HOSPICE CASE MANAGER FOR [facility]. NIKOLAI MADE AWARE RE PT'S CONDITION WITH NEW ORDERS TO DO STAT H/H. ORDERS NOTED AND CARRIED OUT. WILL CONTINUE TO MONITOR.
[2019-04-08 05:53] LABS: HEMOGLOBIN 13.7 g/dL (11.5-14.8)
[2019-04-08] MEDS: BLOOD SUGAR DIAGNOSTIC 1 EACH STRIP IN SCH ×2 (06:21→12:01)
--- NOTE | 2019-04-08 06:59 | NUR ---
MS RN NOTES PT NON VERBAL, RESPONSIVE TO PAINFUL STIMULI. NOT IN ANY DISTRESS. NO SOB NOTED. NO S/SX OF ANY PAIN OR DISCOMFORT AT THIS TIME. WITH IVF & GTF INFUSING WELL. NO S/SX OF ACTIVE BLEEDING AT THIS TIME. AM CARE DONE. MONITORED ACCORDINGLY. CALL LIGHT WITHIN REACH. BED IN LOWEST POSITION. SR UP X 3 WITH BED ALARM ON FOR SAFETY. WILL ENDORSE TO NEXT SHIFT.
--- NOTE | 2019-04-08 07:26 | NUR ---
MS RN NOTES UNABLE TO TAKE PICTURES LAST NIGHT. PICTURES WILL BE TAKEN BY ROCHELLE GUILLEN. ENDORSED ACCORDINGLY.
--- NOTE | 2019-04-08 07:46 | NUR ---
MS RN OPENING NOTES RECEIVED PT IN BED ASLEEP, AWAKENS TO TACTILE STIMULI. HOB ELEVATED. PT IS NON VERBAL, RESPONSIVE TO /TACTILE/PAINFUL STIMULI. ON 02 VIA N/C @ 3LPM, TOLERATING WELL WITH NO SOB NOTED. IV ACCESS ON RAC INTACT AND PATENT WITH IVF OF NS @ 75ML/HR INFUSING WELL. G-TUBE IN PLACE AND PATENT, GTF INFUSING ORDERED AND TOLERATING WELL. G-TUBE SITE NOTED WITH SMALL BLEEDING, DRY DRESSING IN PLACE. CALL LIGHT WITHIN REACH. BED IN LOWEST POSITION WITH SR UP X 3. BED ALARM ON. WILL CONTINUE TO MONITOR PT ACCORDINGLY.
[2019-04-08 08:00] VITALS: BP 132/62
[2019-04-08] MEDS: PANTOPRAZOLE 40 MG TABLET.DR PO SCH (08:31)
[2019-04-08] MEDS: ASPIRIN EC 81 MG TABLET.DR PO SCH (08:31)
[2019-04-08] MEDS: BENAZEPRIL HCL 20 MG TABLET PO SCH (08:31)
[2019-04-08 08:32] VITALS: BP 132/62
[2019-04-08] MEDS: CLONIDINE HCL 0.1 MG TABLET PO SCH (08:32)
[2019-04-08] MEDS: AMLODIPINE BESYLATE 5 MG TABLET PO SCH (08:32)
[2019-04-08] MEDS: CLOPIDOGREL BISULFATE 75 MG TABLET PO SCH (08:33)
--- NOTE | 2019-04-08 09:24 | NUR ---
RN NOTES DR [place] ON UNIT AND INFORMED THAT PT'S HAS SMALL BLEEDING FROM G-TUBE SITE. HE WENT TO CHECKED AND HE ORDERED TO HOLD PLAVIX THIS MORNING AND CONTINUE TO MONITOR SITE CLOSELY.
--- NOTE | 2019-04-08 09:47 | NUR ---
WOUND CARE CONSULT: PT PRESENTS WITH SACRAL SCARRING, PRESENT ON ADMISSION. RECOMMENDATIONS MADE FOR SKIN PROTECTION. DISCUSSED WITH NURSING STAFF. WILL SEE PRN. ASHER IN AGREEMENT WITH PLAN OF CARE.
--- NOTE | 2019-04-08 11:45 | NUR ---
Social service consult requested by MD due to several readmissions. Upon chart review and MD notes, pt is a 78-year-old female with a history of hypertension, hyperlipidemia, TIA/CVA with left-sided hemiparesis, Junior's palsy, CAD/CABG, diabetes mellitus who [facility] status. WOOD HEEL CEMENTER consulted with case management assistant Hailey who informed WOOD HEEL CEMENTER, pt will return to [facility] upon discharge. No other social service needs are requested at this time. WOOD HEEL CEMENTER is available, if needed.
--- NOTE | 2019-04-08 12:49 | NUR ---
RN NOTES PT FOR DISCHARGE TO [facility] TODAY. CALLED AND REPORT GIVEN TO RNS AUGUSTINE, DIANE CALLED PT'S DAUGHTER GUICHO CHARLES @ [phone] AND LEFT MESSAGE.
--- NOTE | 2019-04-08 15:13 | NUR ---
RN NOTES PT DISCHARGED TO [facility] IN STABLE CONDITION. NON-VERBAL, OPEN HER EYES AND RESPONSIVE TO TACTILE STIMULI. V/S TAKEN, STABLE AND RECORDED. ALL BELONGINGS ACCOUNTED FOR. G-TUBE IN PLACE AND PATENT, NO FURTHER BLEEDING AT SITE NOTED. IV ACCESS ON RAC REMOVED WITH NO BLEEDING NOTED, DRY DRESSING APPLIED. DISCHARGED INSTRUCTIONS GIVEN TO [facility] RNS AUGUSTINE AND VERBALIZED UNDERSTANDING. PT LEFT UNIT AT 1500 VIA GURNEY WITH SUPPLEMENTAL 02 VIA N/C AT 2 LPM, NO ACUTE DISTRESS NOTED. DAUGHTER VISITED AND WILL FOLLOWED EMT'S TRANSPORTATION ENROUTE TO [facility]. MD AND CHARGE NURSE AWARE OF PT'S DISCHARGE
== END 2019-04-08 15:15 | DRG 689 ==
LOC: ER 18:55 → TELE 22:31 → MED 23:18
PROVIDERS: ADMIT Nurse Practitioner Acute Care; ATTEND Internal Medicine
PROC: 0DH63UZ Insertion of Feeding Device into Stomach, Percutaneous Approach (ICD-10-PCS; principal; 2019-04-06)
DX: N39.0 Urinary tract infection, site not specified (principal); G93.41 Metabolic encephalopathy; N17.0 Acute kidney failure with tubular necrosis; J98.11 Atelectasis; I69.354 Hemiplegia and hemiparesis following cerebral infarction affecting left non-dominant side; I25.10 Atherosclerotic heart disease of native coronary artery without angina pectoris; E86.0 Dehydration; E11.9 Type 2 diabetes mellitus without complications; Z95.1 Presence of aortocoronary bypass graft; I10 Essential (primary) hypertension; E78.5 Hyperlipidemia, unspecified; K21.9 Gastro-esophageal reflux disease without esophagitis; R13.10 Dysphagia, unspecified; Z79.02 Long term (current) use of antithrombotics/antiplatelets; K29.70 Gastritis, unspecified, without bleeding
CPT/HCPCS: 36415; 36600; 43246; 70450-TC; 71045-TC; 80048-TC; 80061-TC; 80076-TC; 81000-TC; 82140-TC; 82962-TC; 83735-TC; 84100-TC; 84443-TC; 84484-TC; 85025-TC; 85027-TC; 85730-TC; 86850-TC; 87086-TC; G0378; G0480; J0690; J0696; J1650; J1815; J2704; J7030; J7040; J7060